=== PATIENT | female | born 1980 | race Caucasian/White ===

== ENCOUNTER 2019-08-06 09:46 | Emergency (ER) | payer OTHER, BC ==
[~2019-08-06] VITALS: Ht 175.3 cm; Wt 54.4 kg
[2019-08-06 09:50] VITALS: BP 107/81
[2019-08-06] MEDS ORDERED: BACI/NEOM/POLY B OINT PKT 1 UDPKT PACKET ONE (10:43)
== END 2019-08-06 10:45 | disposition home or self-care (01) ==
LOC: ER 09:49
DX: M54.9 Dorsalgia, unspecified (principal); V49.49XA Driver injured in collision with other motor vehicles in traffic accident, initial encounter; Y93.89 Activity, other specified; Y92.413 State road as the place of occurrence of the external cause; Y99.8 Other external cause status